=== PATIENT | female | born 1985 | race Caucasian/White ===

== ENCOUNTER 2018-04-18 03:54 | Emergency (ER) | payer MEDICAID, OTHER | END 2018-04-18 05:07 | disposition home or self-care (01) | LOC: FTE 03:54 | DX: S02.2XXA Fracture of nasal bones, initial encounter for closed fracture (principal); S61.309A Unspecified open wound of unspecified finger with damage to nail, initial encounter; Y04.0XXA Assault by unarmed brawl or fight, initial encounter | CPT/HCPCS: 70486; 99284-25 ==